=== PATIENT | male | born 1945 | race Two or more races ===

== ENCOUNTER 2018-07-04 10:59 | Outpatient (CLI) | payer OTHER | END 2018-07-04 11:05 | disposition home or self-care (01) | LOC: NUCLEAR 10:59 | DX: I77.1 Stricture of artery (principal); I70.203 Unspecified atherosclerosis of native arteries of extremities, bilateral legs ==

== ENCOUNTER 2018-07-07 10:36 | Outpatient (CLI) | payer OTHER | END 2018-07-07 10:45 | disposition home or self-care (01) | LOC: NUCLEAR 10:36 | DX: I87.2 Venous insufficiency (chronic) (peripheral) (principal); I83.893 Varicose veins of bilateral lower extremities with other complications ==